=== PATIENT | male | born 1990 | race Caucasian/White ===

== ENCOUNTER 2018-03-01 11:22 | Emergency (ER) | payer SELFPAY ==
[2018-03-01] MEDS ORDERED: IPRATROPIUM/ALBUTEROL 3 ML DEYVIAL ONE ×2 (11:44→12:13)
[2018-03-01] MEDS ORDERED: ALBUTEROL 3 ML DEYVIAL ONE (11:44)
--- NOTE | 2018-03-01 12:05 | EDPHY ---
HPI/HX/ROS/PE/MDM Narrative: CHIEF COMPLAINT: "Mild asthma attack," allergies HPI: The patient is a 27 y/o male with asthma complaining of a "mild asthma attack" for the last two days with associated allergy symptoms. He describes wheezing, shortness of breath, and coughing during this time. He ran out of his albuterol inhaler 2 days ago and has struggled to manage his symptoms during this time. Allergies have previously triggered his asthma. He is not taking any allergy medication currently. He denies fever, chills, chest pain, vomiting, abdominal pain, diarrhea. He is otherwise healthy. REVIEW OF SYSTEMS: Aside from elements discussed in the HPI, a comprehensive 10-point review of systems was reviewed and is negative. PMH: Asthma with prior hospitalization SOCIAL HISTORY: Employed as a cook. Lives in [place]. PHYSICAL EXAM: General:Patient is alert, in no acute distress. ENT:Eyes are normal to inspection. ENT inspection normal. Neck: Normal inspection. Full range of motion. Respiratory:No respiratory distress. Mild inspiratory and expiratory wheezing bilaterally. Cardiovascular: Regular rate and rhythm. Strong peripheral pulses. Normal cap refill. Abdomen:The abdomen is nontender to palpation. There are no peritoneal signs. Back: Normal to inspection. No tenderness to palpation. Skin: Normal color. No rash. Warm and dry. Extremities: Normal appearance. Full range of motion. Neuro: Oriented x3. Normal motor function. Normal sensory function. ED Course: This is a well-appearing 27 y/o male with asthma who presents with a 2-day history of a mild asthma attack possibly triggered by environmental allergies. He has also run out of his albuterol prescription. He has inspiratory and expiratory wheezes on auscultation. No evidence of systemic infection. Plan for treatment with duo neb and 60mg PO prednisone here and discharge for scripts of the same. Recommended use OTC allergy meds as well and following up with validation intern/obiee consultant locally. Return precautions discussed. He is comfortable with this plan. General Time Seen by Provider: 03/01/18 11:47 Initial Vital Signs: Initial Vital Signs Temperature (C) 36.5 C 03/01/18 11:29 Heart Rate 107 H 03/01/18 11:29 Respiratory Rate 24 H 03/01/18 11:29 Blood Pressure 150/86 H 03/01/18 11:29 O2 Sat (%) 95 0511/18 11:29 O2 Delivery Mode Room Air Allergies/Adverse Reactions: No Known Allergies Allergy (Unverified 03/01/18 11:27) Home Medications: Medication Instructions Recorded Albuterol 03/01/18 Albuterol [Proventil Inhaler] 1 - 2 puffs IH Q4H #1 mdi 03/01/18 predniSONE 60 mg PO DAILY #15 tab 03/01/18 Departure - Departure Disposition: Home, Routine, Self-Care Clinical Impression: Asthma attack Qualifiers: Asthma severity: mild Asthma persistence: unspecified Qualified Code(s): J45.901 - Unspecified asthma with (acute) exacerbation Condition: Good Instructions: Albuterol (By breathing), Prednisone (By mouth), Asthma (ED) Additional Instructions: 1. Use albuterol inhaler as prescribed for coughing and wheezing. 2. Take prednisone as prescribed. Be sure to complete the prescription. 3. I recommend taking an [id number]-fhm-[id number] allergy medication like Joann ( fexofenadine) if allergies tend to trigger your asthma. 4. Establish care with validation intern and/or obiee consultant locally to help manage your long-term asthma symptoms. 5. Return to the ED for worsening of condition. Referrals: Han Logan MD [Medical Doctor] - As per Instructions Prescriptions: Albuterol [Proventil Inhaler] 1 - 2 puffs IH Q4H #1 mdi predniSONE 60 mg PO DAILY #15 tab Report Scribed for: Kirit Bazzi Report Scribed by: Shobha Ruth Date of Report: 03/01/18 Time of Report: 12:05 Physician Review and Approval Statement: Portions of this note were transcribed by an ED scribe. I personally performed the history, physical exam, and medical decision making; and confirm the accuracy of the information in the transcribed note.
[2018-03-01] MEDS ORDERED: IPRATROPIUM/ALBUTEROL 3 ML DEYVIAL IH ONE (12:09)
[2018-03-01] MEDS ORDERED: predniSONE 20 MG TAB PO ONE (12:09)
[2018-03-01 12:38] VITALS: BP 159/99
== END 2018-03-01 12:36 | disposition home or self-care (01) ==
DX: J45.901 Unspecified asthma with (acute) exacerbation (principal)
CPT/HCPCS: J7512; J7613